=== PATIENT | female | born 1970 | race Caucasian/White ===

== ENCOUNTER 2018-02-26 19:38 | Emergency (ER) | payer BC ==
[~2018-02-26] VITALS: Ht 177.8 cm; Wt 92.1 kg
[~2018-02-26 19:38] MED LIST: NASONEX17 GM BOTH NARES; PREDNISONE50 MG PO; VENTOLIN HFA18 GM IH
[2018-02-26] MEDS ORDERED: NAPROSYN500 MG PO (21:22)
[2018-02-26 21:31] VITALS: BP 138/88
== END 2018-02-26 21:37 | disposition home or self-care (01) ==
LOC: EME 19:38
DX: M26.601 Right temporomandibular joint disorder, unspecified (principal); Z88.0 Allergy status to penicillin
CPT/HCPCS: 70110; 99281; 99284